=== PATIENT | female | born 1950 | race Hispanic/Latino ===

== ENCOUNTER 2021-03-22 11:13 | Outpatient (CLI) | payer MEDICARE ==
--- NOTE | 2021-03-22 14:22 | Mammography Report ---
DIGITAL SCREENING MAMMOGRAM WITH TOMOSYNTHESIS WITH CAD, 03/22/2021 CLINICAL INFORMATION / INDICATION: Screening TECHNIQUE: Digital bilateral 2D and 3D mammography with tomosynthesis was obtained in the craniocaud al and mediolateral oblique projections. Computer-Aided Detection (CAD) analysis was used for interp retation of this study. COMPARISON: 03/21/2020 FINDINGS: Breast Density: The breasts are heterogeneously dense, which may obscure small masses. No dominant mass, suspicious calcifications, or architectural distortion in either breast. Right surgical changes and calcifications are again seen. IMPRESSION: No mammographic evidence of malignancy. Follow up recommendation: Routine yearly BI-RADS Category 2: Benign. A "normal" or negative report should not discourage follow up or biopsy of a clinically significant f inding. A written summary of these findings will be mailed to the patient. The patient will be entered into a mammography reporting system which will generate a reminder letter for the patient's next appointmen t at the appropriate interval. The [employer] recommends yearly mammograms starting at age 40 and continuing as l laurent as a woman is in good health. Breast MRI is recommended for women with an approximate 20-25% or greater lifetime risk of breast cancer, including women with a strong family history of breast or ova alex cancer or who have been treated for Hodgkin's disease. Signer Name: Travis Looney MD Signed: 03/22/2021 2:17 PM Workstation Name: [email or web address]
== END 2021-03-22 11:14 | disposition home or self-care (01) ==
LOC: SPVWC 11:13
PROVIDERS: ATTEND Surgery
DX: Z12.31 Encounter for screening mammogram for malignant neoplasm of breast (principal); N64.89 Other specified disorders of breast
CPT/HCPCS: 77063; 77067

== ENCOUNTER 2022-06-28 10:24 | Outpatient (CLI) | payer MEDICARE ==
--- NOTE | 2022-07-01 14:38 | Mammography Report ---
DIGITAL SCREENING MAMMOGRAM WITH TOMOSYNTHESIS WITH CAD, 06/28/2022 CLINICAL INFORMATION / INDICATION: Routine Screening Mammography. SCREENING MAMMO. TECHNIQUE: Digital bilateral 2D and 3D mammography with tomosynthesis was obtained in the craniocauda l and mediolateral oblique projections. Computer-Aided Detection (CAD) analysis was used for interpr etation of this study. COMPARISON: 03/21/2020 and 03/22/2021. FINDINGS: Breast Density: The breasts are heterogeneously dense, which may obscure small masses. No dominant mass, suspicious calcifications, or architectural distortion in either breast. Benign-appearing nodularity and scarring in the right breast are stable. There are benign calcificati ons bilaterally. IMPRESSION: No mammographic evidence of malignancy. Follow up recommendation: Routine yearly screening mammogram. BI-RADS Category 2: BENIGN. A "normal" or negative report should not discourage follow up or biopsy of a clinically significant f inding. A written summary of these findings will be mailed to the patient. The patient will be entered into a mammography reporting system which will generate a reminder letter for the patient's next appointmen t at the appropriate interval. The [employer] recommends yearly mammograms starting at age 40 and continuing as l laurent as a woman is in good health. Breast MRI is recommended for women with an approximate 20-25% or greater lifetime risk of breast cancer, including women with a strong family history of breast or ova alex cancer or who have been treated for Hodgkin's disease. Signer Name: Addi Brock MD Signed: 07/01/2022 2:34 PM Workstation Name: [id number]
== END 2022-06-28 10:25 | disposition home or self-care (01) ==
LOC: SPVWC 10:24
PROVIDERS: ATTEND Surgery
DX: Z12.31 Encounter for screening mammogram for malignant neoplasm of breast (principal)
CPT/HCPCS: 77063; 77067